=== PATIENT | female | born 1985 | race Caucasian/White ===

== ENCOUNTER 2017-06-13 21:36 | Emergency (ER) | payer MEDICAID ==
[~2017-06-13] VITALS: Ht 165.1 cm; Wt 57.3 kg
[~2017-06-13 21:36] MED LIST: FERR-212 PO; PREN-385 PO
[2017-06-13 21:43] VITALS: BP 115/77
--- NOTE | 2017-06-13 22:15 | NUR ---
Pt presents to ED with vaginal bloody spooting x1 day. Pt states 12 weeks . She has been Preg 3 times and has 1 living child, 0 abortions. Pt states lower lumbar pain with bending. Pt states no abdominal pain. Conerned for and request MD consult at this time. VSS. postitioned in bed for comfort. Continue to monitor.
[2017-06-13 22:18] LABS: BASOPHILS # (AUTO) 0.1 K/uL (0.00-0.22); BASOPHILS % (AUTO) 2.1 % (0.0-2.0); EOSINOPHILS % (AUTO) 0.7 % (0.0-4.0); HEMATOCRIT 41.4 % (36-48); HEMOGLOBIN 13.8 g/dL (12.0-16.0); LYMPHOCYTES # (AUTO) 1.2 K/uL (2.5-16.5); LYMPHOCYTES % (AUTO) 16.9 % (20.5-51.1); MEAN CORPUSCULAR HEMOGLOBIN 29 pg (27-31); MEAN CORPUSCULAR HGB CONC 33 g/dL (33-37); MEAN CORPUSCULAR VOLUME 88 fL (80-94); MONOCYTES # (AUTO) 0.3 K/uL (0.8-1.0); MONOCYTES % (AUTO) 4.3 % (1.7-9.3); NEUTROPHILS # (AUTO) 5.3 K/uL (1.8-7.7); PLATELET COUNT (AUTO) 218 K/uL (140-450); RED BLOOD CELL COUNT(AUTO) 4.71 MIL/uL (4.20-5.40); RED CELL DISTRIBUTION WIDTH 12.1 % (11.6-13.7); WHITE BLOOD COUNT (AUTO) 6.9 K/uL (4.8-10.8)
[2017-06-13 22:27] LABS: ANION GAP 13.9 (8-16); CARBON DIOXIDE 24.6 mmol/L (21-32); CREATININE 0.6 mg/dL (0.6-1.3); POTASSIUM 3.5 mmol/L (3.5-5.1)
[2017-06-13 22:35] LABS: ALBUMIN 3.8 g/dL (3.4-5.0); TOTAL BILIRUBIN 0.2 mg/dL (0.0-1.0)
[2017-06-13 22:51] LABS: APPEARANCE,URINE SL CLOUDY (CLEAR); BILIRUBIN,URINE NEGATIVE (NEGATIVE); BLOOD, URINE 3+ (NEGATIVE); COLOR,URINE YELLOW (YELLOW); LEUKOCYTE ESTERASE ,URINE NEGATIVE (NEGATIVE); NITRITE, URINE NEGATIVE (NEGATIVE); UGLUCOSE NEGATIVE (NEGATIVE)
[2017-06-13 23:06] LABS: RBC,URINE 20-50 /HPF (0-5); WBC,URINE 0-5 (RARE) /HPF (0-5)
[2017-06-14 00:05] VITALS: BP 111/75
== END 2017-06-14 00:05 | disposition home or self-care (01) ==
LOC: MED 21:36
DX: O20.0 Threatened abortion (principal); Z3A.12 12 weeks gestation of pregnancy; Z79.899 Other long term (current) drug therapy; Z88.5 Allergy status to narcotic agent
CPT/HCPCS: 36415; 76801; 80053; 81001; 81025; 84702; 85025; 86886; 86900; 86901; 99285

== ENCOUNTER 2017-12-08 12:30 | Inpatient (IN) | payer MEDICAID ==
[~2017-12-08] VITALS: Ht 167.6 cm; Wt 69.9 kg
[2017-12-08] MEDS ORDERED: TERBUTALINE 1 MG/ML VIAL SUBQ SCH (13:00)
[2017-12-08] MEDS ORDERED: TERBUTALINE 1 MG/ML VIAL SUBQ ONE (13:09)
[2017-12-08 13:15] VITALS: BP 112/69
[2017-12-08] MEDS ORDERED: METO25TA PO (13:54)
[2017-12-08] MEDS ORDERED: NIFEdipine 10 MG CAPLF PO SCH (15:15)
[2017-12-08] MEDS ORDERED: NIFEdipine 10 MG CAPLF ONE ×2 (15:26→15:53)
[2017-12-08 16:12] LABS: APPEARANCE,URINE CLEAR (CLEAR); BILIRUBIN,URINE NEGATIVE (NEGATIVE); BLOOD, URINE NEGATIVE (NEGATIVE); COLOR,URINE YELLOW (YELLOW); LEUKOCYTE ESTERASE ,URINE NEGATIVE (NEGATIVE); NITRITE, URINE NEGATIVE (NEGATIVE); PH,URINE 6.5 (5.0-9.0); UGLUCOSE NEGATIVE (NEGATIVE)
[2017-12-08 19:34] LABS: BASOPHILS % (AUTO) 0.1 % (0.0-2.0); EOSINOPHILS % (AUTO) 0.1 % (0.0-4.0); HEMATOCRIT 37.3 % (36-48); HEMOGLOBIN 12.2 g/dL (12.0-16.0); LYMPHOCYTES # (AUTO) 1.1 K/uL (2.5-16.5); LYMPHOCYTES % (AUTO) 13.9 % (20.5-51.1); MEAN CORPUSCULAR HEMOGLOBIN 28 pg (27-31); MEAN CORPUSCULAR HGB CONC 33 g/dL (33-37); MEAN CORPUSCULAR VOLUME 84.7 fL (80-94); MONOCYTES # (AUTO) 0.3 K/uL (0.8-1.0); MONOCYTES % (AUTO) 3.2 % (1.7-9.3); NEUTROPHILS # (AUTO) 6.7 K/uL (1.8-7.7); NEUTROPHILS % (AUTO) 82.7 % (42.2-75.2); PLATELET COUNT (AUTO) 202 K/uL (140-450); RED CELL DISTRIBUTION WIDTH 14.5 % (11.6-13.7); WHITE BLOOD COUNT (AUTO) 8.2 K/uL (4.8-10.8)
[2017-12-08 19:57] LABS: ALBUMIN 3.2 g/dL (3.4-5.0); ANION GAP 12.6 (8-16); CARBON DIOXIDE 24.2 mmol/L (21-32); CREATININE 0.4 mg/dL (0.6-1.3); POTASSIUM 3.8 mmol/L (3.5-5.1); TOTAL BILIRUBIN 0.4 mg/dL (0.0-1.0)
[2017-12-08] MEDS: LACTATED RINGERS 1,000 ML IV SCH (20:16)
[2017-12-08] MEDS ORDERED: NALBUPHINE 10 MG/ML AMP ONE (21:41)
[2017-12-08] MEDS ORDERED: NALBUPHINE 10 MG/ML AMP IVP PRN (21:45)
--- NOTE | 2017-12-09 09:01 | NUR ---
PATIENT HAS BEEN SCREENED AND CATEGORIZED LOW NUTRITION RISK. PATIENT WILL BE SEEN WITHIN 7 DAYS OF ADMISSION. 12/15/[address]
[2017-12-09] MEDS: LACTATED RINGERS 1,000 ML IV SCH ×3 (11:20→17:53)
[2017-12-09] MEDS ORDERED: BUPIVACAINE 0.125%/NS PREMIX 250 ML ONE (12:05)
[2017-12-09] MEDS ORDERED: MISOPROSTOL 25 MCG TAB ONE (19:34)
[2017-12-09] MEDS ORDERED: MISOPROSTOL 25 MCG TAB VG SCH (20:00)
[2017-12-10] MEDS ORDERED: OXYTOCIN 20 UNITS in LACTATED RINGERS 1,000 ML IV SCH ×2 (03:00→19:48)
[2017-12-10] MEDS ORDERED: OXYTOCIN 20 UNITS/LR PREMIX 1,000 ML IV ONE (03:02)
[2017-12-10] MEDS ORDERED: BUPIVACAINE 0.125%/NS PREMIX 250 ML ONE (07:10)
[2017-12-10] MEDS: LACTATED RINGERS 1,000 ML IV SCH (09:55)
[2017-12-10] MEDS ORDERED: OXYTOCIN 10 UNITS/ML VIAL ONE (15:48)
[2017-12-10] MEDS ORDERED: OXYTOCIN 10 UNITS/ML VIAL IM ONE (17:45)
[2017-12-10] MEDS ORDERED: MEASLES, MUMPS, AND RUBELLA 1 VIAL SQVAC PRN (19:50)
[2017-12-10] MEDS ORDERED: ACETAMINOPHEN 325 MG TAB PO PRN (19:50)
[2017-12-10] MEDS ORDERED: BENZOCAINE/MENTHOL 20%-0.5% 60 GM CAN TP PRN (19:50)
[2017-12-10] MEDS: IBUPROFEN 600 MG TAB PO PRN (22:51)
[2017-12-11 09:20] LABS: EOSINOPHILS % (AUTO) 0.3 % (0.0-4.0); HEMATOCRIT 29.8 % (36-48); HEMOGLOBIN 9.9 g/dL (12.0-16.0); LYMPHOCYTES # (AUTO) 1.2 K/uL (2.5-16.5); LYMPHOCYTES % (AUTO) 9.4 % (20.5-51.1); MEAN CORPUSCULAR HEMOGLOBIN 28 pg (27-31); MEAN CORPUSCULAR HGB CONC 33 g/dL (33-37); MEAN CORPUSCULAR VOLUME 83.9 fL (80-94); MONOCYTES # (AUTO) 0.5 K/uL (0.8-1.0); NEUTROPHILS # (AUTO) 10.6 K/uL (1.8-7.7); NEUTROPHILS % (AUTO) 86.3 % (42.2-75.2); PLATELET COUNT (AUTO) 183 K/uL (140-450); RED BLOOD CELL COUNT(AUTO) 3.55 MIL/uL (4.20-5.40); RED CELL DISTRIBUTION WIDTH 14.4 % (11.6-13.7); WHITE BLOOD COUNT (AUTO) 12.3 K/uL (4.8-10.8)
[2017-12-11] MEDS: IBUPROFEN 600 MG TAB PO PRN ×2 (11:26→18:24)
[2017-12-12] MEDS: IBUPROFEN 600 MG TAB PO PRN (06:31)
== END 2017-12-12 15:30 | disposition home or self-care (01) | DRG 560 ==
LOC: INTOOBSV 12:30 → MLD 12:30 → MFCC 19:56 → MLD 12-09 08:26 → OBSVTOIN 12-09 09:11 → MFCC 12-10 20:05
PROVIDERS: ADMIT Obstetrics & Gynecology; ATTEND Obstetrics & Gynecology
PROC: 10E0XZZ Delivery of Products of Conception, External Approach (ICD-10-PCS; principal; 2017-12-10)
PROC: 10907ZC Drainage of Amniotic Fluid, Therapeutic from Products of Conception, Via Natural or Artificial Opening (ICD-10-PCS; 2017-12-10)
PROC: 3E0R3BZ Introduction of Anesthetic Agent into Spinal Canal, Percutaneous Approach (ICD-10-PCS; 2017-12-10)
PROC: 00HU33Z Insertion of Infusion Device into Spinal Canal, Percutaneous Approach (ICD-10-PCS; 2017-12-10)
PROC: 0HQ9XZZ Repair Perineum Skin, External Approach (ICD-10-PCS; 2017-12-10)
PROC: 3E0234Z Introduction of Serum, Toxoid and Vaccine into Muscle, Percutaneous Approach (ICD-10-PCS; 2017-12-12)
DX: O69.81X0 Labor and delivery complicated by cord around neck, without compression, not applicable or unspecified (principal); O70.9 Perineal laceration during delivery, unspecified; Z3A.38 38 weeks gestation of pregnancy; Z37.0 Single live birth; Z23 Encounter for immunization
CPT/HCPCS: G0378 ×21; 36415; 51702; 59200; 59409; 76819; 80053; 81003; 85025; 85379; 85384; 85610; 85730; 86592; 86886; 86900; 86901; 90715; 96372; 96374; C1758; J2300; J2590; J3105; J3490; J7120; Q0092